=== PATIENT | female | born 1950 | race Caucasian/White ===

== ENCOUNTER 2016-11-27 11:01 | Observation (INO) | payer BC, OTHER ==
[~2016-11-27] VITALS: Ht 165.1 cm; Wt 53.4 kg
[~2016-11-27 11:01] MED LIST: CLTP PO; DIPH25CA5 PO; MAGN400T6 PO; OMEG10007 PO; VITA400C3 PO
--- NOTE | 2016-11-27 11:36 | EMERGENCY ROOM VISIT NOTE ---
History Report prepared by Christiano: Chon Smith Under the Supervision of: Dr. Bry Paez D.O. First contact with patient: 11:12 Chief Complaint: DIZZY Stated Complaint: SHAKING, NAUSEA, CHEST PAIN History of Present Illness The patient is a 66 year old female who presents to the Emergency Room with complaints of persistent dizziness that occurred prior to arrival this morning. She goes to a audiology director for low heart function and is a post-breast cancer patient with a history of chemotherapy. The patient says that she has been experiencing a bit of chest pain for the past week. However, this morning, she took a shower, and as she was drying her hair, she started feeling very dizzy and nauseous. She felt like vomiting but she did not because she hadn't eaten breakfast yet. The patient's legs also started to tremble. The patient thought she should eat something, so she started making her cereal, but then she started to tremble and shake more and felt more chest tightness. She could not swallow, and she felt like she was going to pass out. The patient also noted heavy breathing. She says that she still has these symptoms. The patient's blood pressure at home was 140/90-something. She took 1 regular Aspirin over an hour ago. She denies a cough or fevers. She has no history of heart attacks, or clots in the lungs or legs. She drinks occasional alcohol and does not use tobacco products. Source of History: patient Onset: Prior to arrival this morning Position: other (global - dizziness) Timing: other (persistent) Associated Symptoms: + chest pain, + nausea, No cough, No fevers, No vomiting Note: Associated symptoms: Could not swallow. Persistent trembling/shaking. Heavy breathing. Review of Systems See HPI for pertinent positives & negatives. A total of 10 systems reviewed and were otherwise negative. Past Medical & Surgical Medical Problems: (1) Breast cancer (2) Breast cancer (3) Non-ischemic cardiomyopathy (4) PVC (premature ventricular contraction) Surgical Problems: (1) H/O rotator cuff surgery (2) H/O sinus surgery (3) History of hysterectomy (4) History of hysterectomy (5) History of lumpectomy of right breast Family History Cancer Diabetes mellitus FH: kidney disease Heart disease Hypertension Social History Smoking Status: Never Smoker Smokeless Tobacco Use: No Alcohol Use: occasionally Marital Status: Housing Status: lives with family Occupation Status: employed Current/Historical Medications Scheduled Calcium/Vitamin D (Os-Javier 500 Plus D), 1 TAB PO DAILY Cyanocobalamin (Vitamin B-12), 500 MCG PO DAILY Magnesium Oxide (Magnesium Oxide), 1 CAP PO DAILY Multivitamin (Multivitamin), 1 TAB PO DAILY Allergies Coded Allergies: Codeine (Verified Adverse Reaction, Unknown, DIZZINESS, NAUSEA, 09/24/09) Meperidine (Verified Adverse Reaction, Unknown, LOW BP, IRREGULAR HEARTBEATS, 09/24/09) No Known Allergies (Verified , 05/14/08) Physical Exam Vital Signs Date Time Temp Pulse Resp B/P Pulse Ox O2 Delivery O2 Flow Rate FiO2 11/27/16 17:06 100 16 137/80 98 Room Air 11/27/16 16:18 Room Air 11/27/16 14:38 101 18 147/75 11/27/16 13:33 92 11/27/16 12:55 95 18 158/82 11/27/16 12:01 100 Room Air 11/27/16 12:01 100 Room Air 11/27/16 11:21 106 11/27/16 11:04 36.4 107 20 158/87 99 Room Air Physical Exam GENERAL: Patient is awake, alert, mildly anxious appearing but overall comfortable. EYES: The conjunctivae are clear. The pupils are round and reactive. EARS, NOSE, MOUTH AND THROAT: The nose is without any evidence of any deformity. Mucous membranes are moist tongue is midline NECK: The neck is nontender and supple. RESPIRATORY: Normal respiratory effort is noted there is no evidence of wheezing rhonchi or rales CARDIOVASCULAR: Regular rate and rhythm noted there no murmurs rubs or gallops normal S1 normal S2 GASTROINTESTINAL: The abdomen is soft. Bowel sounds are present in all quadrants. Abdomen is nontender MUSCULOSKELETAL/EXTREMITIES: There is no evidence of gross deformity full range of motion is noted in the hips and shoulders SKIN: There is no obvious evidence of any rash. There are no petechiae, pallor or cyanosis noted. NEUROLOGIC: Patient is awake alert and oriented x3 strength is symmetric patellar reflexes are 2+ bilaterally Medical Decision & Procedures ER Provider Diagnostic Interpretation: X-ray results as stated below per interpretation by me and the radiologist. SINGLE VIEW CHEST CLINICAL HISTORY: Dyspnea. FINDINGS: An AP, portable, upright chest radiograph is compared to study dated 11/30/2008. Correlation is made with PET/CT dated 06/03/2008. The examination is degraded by portable technique and patient rotation. The cardiomediastinal silhouette is unremarkable. There is atherosclerotic calcification of the thoracic aorta. Emphysema is suspected. There is chronic interstitial thickening. No airspace consolidation or pleural effusion is identified. Biapical scarring is noted. No pneumothorax is seen. The skeletal structures are osteopenic. The bony thorax is grossly intact. IMPRESSION: 1. There is no acute cardiopulmonary abnormality. 2. Suspect emphysema. Electronically signed by: Michael Murray M.D. 11/27/2016 12:00 PM Dictated Date/Time: 11/27/2016 11:59 AM Laboratory Results 11/27/16 11:35 Red Blood Count 3.62, Mean Corpuscular Volume 97.8, Mean Corpuscular Hemoglobin 33.4, Mean Corpuscular Hemoglobin Concent 34.2, Mean Platelet Volume 9.0, Neutrophils (%) (Auto) 76.5, Lymphocytes (%) (Auto) 16.3, Monocytes (%) (Auto) 5.2, Eosinophils (%) (Auto) 1.3, Basophils (%) (Auto) 0.4, Neutrophils # (Auto) 5.94, Lymphocytes # (Auto) 1.26, Monocytes # (Auto) 0.40, Eosinophils # (Auto) 0.10, Basophils # (Auto) 0.03 11/27/16 11:35 Test 11/27/16 11:35 11/27/16 11:41 11/27/16 13:50 White Blood Count 7.75 K/uL (4.8-10.8) Red Blood Count 3.62 M/uL (4.2-5.4) Hemoglobin 12.1 g/dL (12.0-16.0) Hematocrit 35.4 % (37-47) Mean Corpuscular Volume 97.8 fL (80-100) Mean Corpuscular Hemoglobin 33.4 pg (25-34) Mean Corpuscular Hemoglobin Concent 34.2 g/dl (32-36) Platelet Count 224 K/uL (130-400) Mean Platelet Volume 9.0 fL (7.4-10.4) Neutrophils (%) (Auto) 76.5 % Lymphocytes (%) (Auto) 16.3 % Monocytes (%) (Auto) 5.2 % Eosinophils (%) (Auto) 1.3 % Basophils (%) (Auto) 0.4 % Neutrophils # (Auto) 5.94 K/uL (1.4-6.5) Lymphocytes # (Auto) 1.26 K/uL (1.2-3.4) Monocytes # (Auto) 0.40 K/uL (0.11-0.59) Eosinophils # (Auto) 0.10 K/uL (0-0.5) Basophils # (Auto) 0.03 K/uL (0-0.2) RDW Standard Deviation 47.4 fL (36.4-46.3) RDW Coefficient of Variation 13.2 % (11.5-14.5) Immature Granulocyte % (Auto) 0.3 % Immature Granulocyte # (Auto) 0.02 K/uL (0.00-0.02) Prothrombin Time 10.6 SECONDS (9.0-12.0) Prothromb Time International Ratio 1.0 (0.9-1.1) Activated Partial Thromboplast Time 24.5 SECONDS (21.0-31.0) Partial Thromboplastin Ratio 0.9 Anion Gap 7.0 mmol/L (3-11) Est Creatinine Clear Calc Drug Dose 90.8 ml/min Estimated GFR () 114.8 Estimated GFR (Non- 99.0 BUN/Creatinine Ratio 25.0 (10-20) Calcium Level 9.0 mg/dl (8.5-10.1) Total Bilirubin 0.4 mg/dl (0.2-1) Aspartate Amino Transf (AST/SGOT) 19 U/L (15-37) Alanine Aminotransferase (ALT/SGPT) 20 U/L (12-78) Alkaline Phosphatase 62 U/L (45-117) Total Creatine Kinase 52 U/L (26-192) Creatine Kinase MB 0.9 ng/ml (0.5-3.6) Creatine Kinase MB Ratio 1.7 (0-3.0) Total Protein 7.5 gm/dl (6.4-8.2) Albumin 4.0 gm/dl (3.4-5.0) Globulin 3.5 gm/dl (2.5-4.0) Albumin/Globulin Ratio 1.1 (0.9-2) Thyroid Stimulating Hormone (TSH) 2.300 uIu/ml (0.300-4.500) Free Thyroxine 0.77 ng/dl (0.80-1.60) Bedside D-Dimer 115 ng/mlFEU (0-450) Troponin I < 0.015 ng/ml (0-0.045) Laboratory results per my review. ECG Indication: other (dizzy) Rate (beats per minute): 101 Rhythm: sinus tachycardia Findings: no ectopy, other (LVH noted by voltage criteria) Change: no significant change (from December 14 2016) ED Course 1112: The patient was evaluated in room B3B. A complete history and physical examination were performed. 1435: Upon reevaluation, the patient is resting comfortably. I discussed results and treatment plan with her. She verbalizes agreement and understanding. The patient will be evaluated for further management and care. 1444: I discussed the patient with Brianna Boyd. She will evaluate the patient for further treatment. Medical Decision Prior records/ancillary studies reviewed. Triage Nursing notes reviewed. Differential diagnosis: Etiologies such as cardiac ischemia, aortic dissection, pulmonary embolism, pneumonia, pneumothorax, musculoskeletal, infections, pericarditis, myocarditis , esophageal rupture, gastrointestinal, as well as others were entertained. The patient is a 66-year-old female who presented to the emergency department for an evaluation of multiple complaints. The patient started noticing chest discomfort and heaviness but also had shakiness. She describes episodes where she could not stand because she was so weak in the lower extremities and felt as though she was having palpitations and near-syncope. I'm very concerned about the patient's overall symptoms that she describes. It is possible he could be cardiac although I feel that she is low risk at this time because of serial negative troponins and EKG that does not show any acute change from previous. I discussed the patient's laboratory and radiographic studies with her. I also discussed the limitations of the emergency department workup for chest pain with her. Because she was very concerned about the symptoms I also discussed her case with the on-call [facility] hospitalist group. They've agreed to evaluate the patient in the emergency department for further management and disposition. Consults Time Called: 1442 Consulting Physician: Brianna Boyd Returned Call: [phone] I discussed the patient with Brianna Boyd. She will evaluate the patient for further treatment. Impression Primary Impression: Chest pain Additional Impressions: Palpitations Weakness Scribe Attestation The scribe's documentation has been prepared under my direction and personally reviewed by me in its entirety. I confirm that the note above accurately reflects all work, treatment, procedures, and medical decision making performed by me. Departure Information Dispostion Being Evaluated By Hospitalist Referrals Beni Keene M.D.(HU[facility]) (PCP) Patient Instructions My [facility] Problem Qualifiers Primary Impression: Chest pain Chest pain type: unspecified Qualified Codes: R07.9 - Chest pain, unspecified
[2016-11-27 11:57] LABS: BASO % 0.4 %; BASO ABS # 0.03 K/uL (0-0.2); COMPLETE YES; EOS % 1.3 %; HEMATOCRIT 35.4 % (37-47); IG% 0.3 %; LYMPH % 16.3 %; LYMPH ABS # 1.26 K/uL (1.2-3.4); MEAN CELL VOLUME 97.8 fL (80-100); MEAN CORPUSCULAR HEMOGLOBIN 33.4 pg (25-34); MEAN CORPUSCULAR HGB CONC 34.2 g/dl (32-36); MONO % 5.2 %; NEUT % 76.5 %; PLATELET COUNT 224 K/uL (130-400); RED BLOOD COUNT 3.62 M/uL (4.2-5.4); WHITE BLOOD COUNT 7.75 K/uL (4.8-10.8)
--- NOTE | 2016-11-27 12:02 | DIAGNOSTIC IMAGING REPORT ---
SINGLE VIEW CHEST CLINICAL HISTORY: Dyspnea. FINDINGS: An AP, portable, upright chest radiograph is compared to study dated 11/30/2008. Correlation is made with PET/CT dated 06/03/2008. The examination is degraded by portable technique and patient rotation. The cardiomediastinal silhouette is unremarkable. There is atherosclerotic calcification of the thoracic aorta. Emphysema is suspected. There is chronic interstitial thickening. No airspace consolidation or pleural effusion is identified. Biapical scarring is noted. No pneumothorax is seen. The skeletal structures are osteopenic. The bony thorax is grossly intact. IMPRESSION: 1. There is no acute cardiopulmonary abnormality. 2. Suspect emphysema. Electronically signed by: Michael Murray M.D. 11/27/2016 12:00 PM Dictated Date/Time: 11/27/2016 11:59 AM
[2016-11-27 12:05] LABS: PARTIAL THROMBOPLASTIN RATIO 0.9; PROTHROMBIN TIME (PATIENT) 10.6 SECONDS (9.0-12.0)
[2016-11-27 12:15] LABS: ALT/SGPT 20 U/L (12-78); BLOOD UREA NITROGEN 14 mg/dl (7-18); CARBON DIOXIDE 28 mmol/L (21-32); CHLORIDE 101 mmol/L (98-107); CREATININE 0.54 mg/dl (0.60-1.20); GLUCOSE 154 mg/dl (70-99); POTASSIUM 4.1 mmol/L (3.5-5.1); SODIUM 136 mmol/L (136-145)
[2016-11-27 12:25] LABS: ALB/GLOB RATIO 1.1 (0.9-2); ALKALINE PHOSPHATASE 62 U/L (45-117); AST/SGOT 19 U/L (15-37); CKMB/CK RATIO 1.7 (0-3.0)
[2016-11-27] MEDS ORDERED: MULT-506 PO (15:29)
[2016-11-27] MEDS ORDERED: CYAN500T PO (15:29)
[2016-11-27] MEDS ORDERED: CALC500C70 PO (15:29)
[2016-11-27] MEDS ORDERED: MAGN400C2 PO (15:29)
[2016-11-27] MEDS ORDERED: NITROGLYCERIN 0.4 MG SL PER TAB CHARGE SL PRN (15:30)
[2016-11-27] MEDS ORDERED: ACETAMINOPHEN 325 MG TAB PO PRN (15:30)
[2016-11-27] MEDS ORDERED: ONDANSETRON INJ 2 MG/ML 2 ML VIAL IV PRN (15:30)
--- NOTE | 2016-11-27 15:57 | History and Physical ---
History & Physical Date & Time of Service: Nov 27, 2016 at 15:34 Chief Complaint: Chest Pain, Lightheadedness, Shaking Primary Care Physician: Beni Keene M.D.(MICHAEL) History of Present Illness 66 year old female who presents to the ER with reports of shaking, chest pain, and lightheadedness. Patient reports she woke up this morning feeling in her usual state of health. She reports she showered and got ready for the day. She then went to have breakfast and reports that after having two bites of cereal, she had some difficulty swallowing and then started shaking all over. She thought that maybe her blood sugar was low so she went to the refrigerator and poured herself a glass of orange juice which she drank. She then reports she felt very lightheaded and dizzy. She was able to make it back to the chair. Also during this time she reports palpitations and chest pressure in the middle of her chest pain. She denies any radiation of the pain into her neck, jaw, or arm. She reports associated nausea. No shortness of breath or diaphoresis. Patient reports she has been feeling well recently. She walks 1 mile almost everyday which she tolerates without any problem or episodes of chest pain. Yesterday she was cleaning her grill and feels like she may have inhaled some of the glass cleaner she was using. She denies abdominal pain, vomiting, or diarrhea. No fever or chills. She denies urinary symptoms. Patient reports her symptoms have resolved since coming to the ER. In the ER, patient's initial troponin is negative and EKG does not show any acute ST changes. Labs are unremarkable. Past Medical/Surgical History Medical Problems: (1) Breast cancer Status: Resolved (2) Breast cancer Permanent Comment: s/p chemo, radiation, and lumpectomy Status: Chronic (3) Non-ischemic cardiomyopathy Permanent Comment: chemo induced echo 08/2016 - EF 40-44%, grade I diastolic dysfunction Status: Chronic (4) PVC (premature ventricular contraction) Status: Chronic Surgical Problems: (1) H/O rotator cuff surgery Status: Chronic (2) H/O sinus surgery Status: Chronic (3) History of hysterectomy Status: Resolved (4) History of hysterectomy Status: Chronic (5) History of lumpectomy of right breast Status: Chronic Family History Diabetes mellitus MOTHER FH: brain aneurysm SISTER FH: kidney disease MOTHER Heart disease FATHER ( from [place] at age 69) Hypertension MOTHER Social History Smoking Status: Never Smoker Alcohol Use: 1 beer/day Marital Status: Immunizations History of Influenza Vaccine: Yes Influenza Vaccine Date: Jun 14, 2016 History of Tetanus Vaccine?: Yes Tetanus Immunization Date: May 23, 2010 Multi-Drug Resistant Organisms History of MDRO: No Allergies Coded Allergies: Codeine (Verified Adverse Reaction, Unknown, DIZZINESS, NAUSEA, 09/24/09) Meperidine (Verified Adverse Reaction, Unknown, LOW BP, IRREGULAR HEARTBEATS, 09/24/09) No Known Allergies (Verified , 05/14/08) Home Medications Scheduled Calcium/Vitamin D (Os-Javier 500 Plus D), 1 TAB PO DAILY Cyanocobalamin (Vitamin B-12), 500 MCG PO DAILY Magnesium Oxide (Magnesium Oxide), 1 CAP PO DAILY Multivitamin (Multivitamin), 1 TAB PO DAILY Review of Systems 10 point review of systems was completed with the pertinent positives and negatives noted per the HPI Physical Exam Vital Signs Date Time Temp Pulse Resp B/P Pulse Ox O2 Delivery O2 Flow Rate FiO2 11/27/16 14:38 101 18 147/75 11/27/16 13:33 92 11/27/16 12:55 95 18 158/82 11/27/16 12:01 100 Room Air 11/27/16 12:01 100 Room Air 11/27/16 11:21 106 11/27/16 11:04 36.4 107 20 158/87 99 Room Air General Appearance: no apparent distress Head: normocephalic Eyes: normal inspection ENT: hearing grossly normal Neck: supple, no JVD Respiratory/Chest: lungs clear, normal breath sounds, no respiratory distress Cardiovascular: no edema, + tachycardia (HR in the 90s, rhythm regular) Abdomen/GI: normal bowel sounds, non tender, soft Extremities/Musculoskelatal: normal inspection, no calf tenderness Neurologic/Psych: no motor/sensory deficits, alert, normal mood/affect, oriented x 3 Skin: normal color, warm/dry Diagnostics Laboratory Results Results Past 24 Hours Test 11/27/16 11:35 11/27/16 11:41 11/27/16 13:50 Range/Units White Blood Count 7.75 4.8-10.8 K/uL Red Blood Count 3.62 4.2-5.4 M/uL Hemoglobin 12.1 12.0-16.0 g/dL Hematocrit 35.4 37-47 % Mean Corpuscular Volume 97.8 80-100 fL Mean Corpuscular Hemoglobin 33.4 25-34 pg Mean Corpuscular Hemoglobin Concent 34.2 32-36 g/dl Platelet Count 224 130-400 K/uL Mean Platelet Volume 9.0 7.4-10.4 fL Neutrophils (%) (Auto) 76.5 % Lymphocytes (%) (Auto) 16.3 % Monocytes (%) (Auto) 5.2 % Eosinophils (%) (Auto) 1.3 % Basophils (%) (Auto) 0.4 % Neutrophils # (Auto) 5.94 1.4-6.5 K/uL Lymphocytes # (Auto) 1.26 1.2-3.4 K/uL Monocytes # (Auto) 0.40 0.11-0.59 K/uL Eosinophils # (Auto) 0.10 0-0.5 K/uL Basophils # (Auto) 0.03 0-0.2 K/uL RDW Standard Deviation 47.4 36.4-46.3 fL RDW Coefficient of Variation 13.2 11.5-14.5 % Immature Granulocyte % (Auto) 0.3 % Immature Granulocyte # (Auto) 0.02 0.00-0.02 K/uL Prothrombin Time 10.6 9.0-12.0 SECONDS Prothromb Time International Ratio 1.0 0.9-1.1 Activated Partial Thromboplast Time 24.5 21.0-31.0 SECONDS Partial Thromboplastin Ratio 0.9 Sodium Level 136 136-145 mmol/L Potassium Level 4.1 3.5-5.1 mmol/L Chloride Level 101 98-107 mmol/L Carbon Dioxide Level 28 21-32 mmol/L Anion Gap 7.0 3-11 mmol/L Blood Urea Nitrogen 14 7-18 mg/dl Creatinine 0.54 0.60-1.20 mg/dl Est Creatinine Clear Calc Drug Dose 90.8 ml/min Estimated GFR () 114.8 Estimated GFR (Non- 99.0 BUN/Creatinine Ratio 25.0 10-20 Random Glucose 154 70-99 mg/dl Calcium Level 9.0 8.5-10.1 mg/dl Total Bilirubin 0.4 0.2-1 mg/dl Aspartate Amino Transf (AST/SGOT) 19 15-37 U/L Alanine Aminotransferase (ALT/SGPT) 20 12-78 U/L Alkaline Phosphatase 62 45-117 U/L Total Creatine Kinase 52 26-192 U/L Creatine Kinase MB 0.9 0.5-3.6 ng/ml Creatine Kinase MB Ratio 1.7 0-3.0 Troponin I < 0.015 < 0.015 0-0.045 ng/ml Total Protein 7.5 6.4-8.2 gm/dl Albumin 4.0 3.4-5.0 gm/dl Globulin 3.5 2.5-4.0 gm/dl Albumin/Globulin Ratio 1.1 0.9-2 Thyroid Stimulating Hormone (TSH) 2.300 0.300-4.500 uIu/ml Free Thyroxine 0.77 0.80-1.60 ng/dl Bedside D-Dimer 115 0-450 ng/mlFEU Diagnostic Radiology CXR IMPRESSION: 1. There is no acute cardiopulmonary abnormality. 2. Suspect emphysema. Impression Assessment and Plan CHEST PAIN, NEAR SYNCOPE - admit to tele - patient presenting with sudden onset of chest pressure and palpitations, lightheadedness, and generalized tremors - symptoms lasted for about 2 hours and have resolved on their own - initial troponin negative, EKG without acute ST changes - patient took ASA at home, will continue with daily dose and add on empiric atorvastatin 80mg until ACS ruled out - ACS risk factors - + family history - check lipids in AM - has history of PVCs - not on treatment - Holter 07/2016 showed rare asymptomatic PVCs - electrolytes and TSH WNL - monitor in tele for arrhythmias - check orthostatic BPs - D. Dimer negative - continue to cycle cardiac enzymes, if negative, will proceed with stress test in AM - ? if symptoms were due to anxiety / panic attack CHEMO INDUCED CARDIOMYOPATHY - echo 08/2016 - EF 40-44%, grade II diastolic dysfunction - not on diuretics, appears euvolemic DVT PROPHYLAXIS -Lovenox DISPO - The patient will be placed as observation status for now until further work up is complete. I have seen and examined the patient and agree with the assessment and plan as stated above. Mrs. Adair experienced what she describes as a "disorganized " rhythm in her chest for approximately 2 hours that was associated with lightheadedness and nausea and was made worse with lying flat. She took the ASA 325mg at home and came in, feeling better after receiving a warm blanket from the ER nurse 30 minutes after her arrival. EKG reveals sinus tachycardia with LVH and left atrial enlargement. An arrythmia is possible and ACS is intermediate probability. Observe on telemetry overnight and treat symptoms if they occur. Consider stress test in am or as an outpatient. Of note patient has a h/o palpitations and recent Holter monitor results from 07/2016 are above. She is monitored in [facility] annually. Mild tachycardia in high 90s /low 100s otherwise stable and afebrile with unremarkable physical exam. Katty Roman, DO Level of Care Telemetry Resuscitation Status FULL RESUSCITATION VTE Prophylaxis VTE Risk Assessment Done? Y/N: Yes Risk Level: Moderate Given or contraindicated: Enoxaparin (Lovenox)SQ Social Service Consult None Apply
[2016-11-27 16:18] VITALS: Ht 165.1 cm; Wt 53.4 kg
[2016-11-27] MEDS ORDERED: IV FLUIDS COMPLETED PRN ×2 (16:30)
[2016-11-27] MEDS ORDERED: ATORVASTATIN 40 MG TAB PO ONE (16:30)
[2016-11-27 17:45] VITALS: BP 119/70; PULSE 104; TEMP 36.8; O2SAT 97
[2016-11-27 23:59] VITALS: BP 124/71; PULSE 89; TEMP 36.9; O2SAT 94
[2016-11-28] VITALS (7 sets, daily range): BP systolic 114–149; BP diastolic 72–101; PULSE 83–111; TEMP 36.4–37.1; O2SAT 95–98
[2016-11-28 06:06] LABS: HEMATOCRIT 36.2 % (37-47); MEAN CELL VOLUME 95.5 fL (80-100); MEAN CORPUSCULAR HEMOGLOBIN 32.7 pg (25-34); MEAN CORPUSCULAR HGB CONC 34.3 g/dl (32-36); MEAN PLATELET VOLUME 9.1 fL (7.4-10.4); PLATELET COUNT 229 K/uL (130-400); RED BLOOD COUNT 3.79 M/uL (4.2-5.4); WHITE BLOOD COUNT 6.37 K/uL (4.8-10.8)
[2016-11-28 06:44] LABS: MANUAL MICROSCOPIC REQUIRED? NO; REVIEW REQ? YES; URINE APPEARANCE CLEAR (CLEAR); URINE BILIRUBIN NEG (NEG); URINE COLOR YELLOW; URINE NITRITE NEG (NEG); URINE PH 5.5 (4.5-7.5); URINE SPECIFIC GRAVITY 1.021 (1.000-1.030); UROBILINOGEN NEG (NEG)
[2016-11-28 06:45] LABS: BUN/CREATININE RATIO 24.1 (10-20); CALCIUM 9.3 mg/dl (8.5-10.1); CREATININE 0.49 mg/dl (0.60-1.20); POTASSIUM 3.8 mmol/L (3.5-5.1)
[2016-11-28 06:49] LABS: ESTIMATED AVERAGE GLUCOSE 94 mg/dl; HA1C FLAG Normal (Normal)
[2016-11-28 06:49] LABS: CHOLESTEROL/HDL RATIO 1.9
[2016-11-28] MEDS ORDERED: MULTIVITAMIN TAB PO SCH (09:00)
[2016-11-28] MEDS ORDERED: CYANOCOBALAMIN 500 MCG TAB (VIT B-12) PO SCH (09:00)
[2016-11-28] MEDS ORDERED: ASPIRIN 81 MG ECTAB PO SCH (09:00)
[2016-11-28] MEDS ORDERED: CALCIUM 600MG + VIT D 400 IU TAB PO SCH (09:00)
[2016-11-28] MEDS ORDERED: ENOXAPARIN 40 MG/0.4 ML SYR SQ SCH (09:00)
[2016-11-28] MEDS ORDERED: MAGNESIUM OXIDE 400 MG TAB PO SCH (09:00)
--- NOTE | 2016-11-28 16:21 | Progress Note ---
Internal Med Progress Note Date of Service: Nov 28, 2016. Provider Documentation: SUBJECTIVE: Patient is seen and examined at bedside. States feeling well. Denies any chest pain, palpitations, dizziness currently. Refused stress test and only got ECHO. Eager to get discharged. OBJECTIVE: Vital Signs-as noted below Physical Exam: General Appearance:Moderately built and nourished, no apparent distress Head: normocephalic, Atraumatic Eyes: normal inspection, EOMI, PERRLA Neck: supple, JVD, Trachea midline Respiratory/Chest: Normal breath sounds, CTA Cardiovascular: S1, S2, NSR, +Tachycardia, No murmur Abdomen/GI:Soft, Non tender, Bowel sounds present Extremities/Musculoskelatal:normal inspection, no edema Neurologic/Psych:AAOX3, grossly no focal neurological deficits Skin: normal color, warm Lab data as noted below. ASSESSMENT & PLAN: CHEST PAIN, NEAR SYNCOPE H/O PVCs - not on treatment - Holter 07/2016 showed rare asymptomatic PVCs Patient presented with sudden onset of chest pressure and palpitations, lightheadedness, and generalized tremors Symptoms lasted for about 2 hours and have resolved on their own Troponin X3 : Negative EKG without acute ST changes Electrolytes and TSH WNL Monitor did not show any arrhythmias D. Dimer negative Patient refused stress test and wanted further evaluation done as outpatient Wants to follow up with cardiology as outpatient Believes symptoms are likely secondary to anxiety / panic attack ECHO: Normal LV wall motion CHEMO INDUCED CARDIOMYOPATHY Last Echo 08/2016 - EF 40-44%, grade II diastolic dysfunction Not on diuretics, appears euvolemic Repeat ECHO: improved EF H/O Breast cancer S/P Lumpectomy, chemo and radiation Follows with DVT PX Lovenox DISPO Plan to discharge home today Follow up with on December 05 at 12:50 Pm Follow up with cardiology on December 01 at 7:45 Am PROCEDURES: ECHO: * The left ventricle is normal in size. * There is normal left ventricular wall thickness. * The left ventricular wall motion is normal. * Left ventricular systolic function is normal. * Ejection Fraction = 55-60%. * There is no signifcant valvular heart disease * There is no pericardial effusion. Vital Signs: Date Time Temp Pulse Resp B/P Pulse Ox O2 Delivery O2 Flow Rate FiO2 11/28/16 15:20 36.5 109 20 149/83 95 Room Air 103 148/91 111 133/101 11/28/16 12:00 98 Room Air 11/28/16 11:41 36.4 90 18 114/72 98 11/28/16 08:17 37.1 87 16 120/77 98 11/28/16 08:00 98 Room Air 11/28/16 04:00 Room Air 11/28/16 00:02 36.4 83 16 149/77 98 Room Air 148/83 146/96 11/28/16 00:00 Room Air 11/27/16 20:00 Room Air 11/27/16 17:45 36.8 104 20 119/70 97 Room Air 11/27/16 17:06 100 16 137/80 98 Room Air Lab Results: Results Past 24 Hours Test 11/27/16 19:00 11/28/16 00:30 11/28/16 05:30 11/28/16 05:46 Range/Units Creatine Kinase MB 0.8 0.7 0.5-3.6 ng/ml Creatine Kinase MB Ratio 0-3.0 Troponin I < 0.015 < 0.015 0-0.045 ng/ml Urine Color YELLOW Urine Appearance CLEAR CLEAR Urine pH 5.5 4.5-7.5 Urine Specific [place] 1.021 1.000-1.030 Urine Protein NEG NEG Urine Glucose (UA) NEG NEG Urine Ketones NEG NEG Urine Occult Blood 1+ NEG Urine Nitrite NEG NEG Urine Bilirubin NEG NEG Urine Urobilinogen NEG NEG Urine Leukocyte Esterase MODERATE NEG Urine WBC (Auto) 10-30 0-5 /hpf Urine RBC (Auto) 0-4 0-4 /hpf Urine Hyaline Casts (Auto) 1-5 0-5 /lpf Urine Epithelial Cells (Auto) 10-20 0-5 /lpf Urine Bacteria (Auto) NEG NEG White Blood Count 6.37 4.8-10.8 K/uL Red Blood Count 3.79 4.2-5.4 M/uL Hemoglobin 12.4 12.0-16.0 g/dL Hematocrit 36.2 37-47 % Mean Corpuscular Volume 95.5 80-100 fL Mean Corpuscular Hemoglobin 32.7 25-34 pg Mean Corpuscular Hemoglobin Concent 34.3 32-36 g/dl RDW Standard Deviation 45.9 36.4-46.3 fL RDW Coefficient of Variation 13.1 11.5-14.5 % Platelet Count 229 130-400 K/uL Mean Platelet Volume 9.1 7.4-10.4 fL Sodium Level 140 136-145 mmol/L Potassium Level 3.8 3.5-5.1 mmol/L Chloride Level 105 98-107 mmol/L Carbon Dioxide Level 30 21-32 mmol/L Anion Gap 5.0 3-11 mmol/L Blood Urea Nitrogen 12 7-18 mg/dl Creatinine 0.49 0.60-1.20 mg/dl Est Creatinine Clear Calc Drug Dose 96.5 ml/min Estimated GFR () 118.5 Estimated GFR (Non- 102.2 BUN/Creatinine Ratio 24.1 10-20 Random Glucose 87 70-99 mg/dl Calcium Level 9.3 8.5-10.1 mg/dl Triglycerides Level 51 0-150 mg/dl Cholesterol Level 224 0-200 mg/dl HDL Cholesterol 120 mg/dl LDL Cholesterol, Calculated 94 mg/dl VLDL Cholesterol, Calculated 10 mg/dl Cholesterol/HDL Ratio 1.9
--- NOTE | 2016-11-28 16:27 | ECHOCARDIOGRAM REPORT ---
*NOTICE TO RECEIVING [employer]Y This information is strictly Confidential and protected under [place] law. [place] law prohibits you from making any further disclosure of this information unless further disclosure is expressly permitted by the written consent of the person to whom it pertains or is authorized by law. A general authorization for the release of medical or other information is not sufficient for this purpose. Hospital accepts no responsibility if the information is made available to any other person, INCLUDING THE PATIENT. Interpretation Summary * Name: CJ OROZCO Study Date: 11/28/2016 02:35 PM BP: 133/101 mmHg * Patient Location: [facility] HR: 111 * : 1950 (M/d/yyyy) Gender: Female Height: 65 in * Age: 66 yrs Ethnicity: CA Weight: 122 lb * Ordering Physician: Brianna Jean * Performed By: Denise Lowe RDCS * * Reason For Study: Chest pain * BSA: 1.6 m2 * -- Conclusions -- * The left ventricle is normal in size. * There is normal left ventricular wall thickness. * The left ventricular wall motion is normal. * Left ventricular systolic function is normal. * Ejection Fraction = 55-60%. * There is no signifcant valvular heart disease * There is no pericardial effusion. Procedure Details * A complete two-dimensional transthoracic echocardiogram was performed (2D, M-mode, Doppler and color flow Doppler). Left Ventricle * The left ventricle is normal in size. * There is normal left ventricular wall thickness. * Ejection Fraction = 55-60%. * Left ventricular systolic function is normal. * The left ventricular wall motion is normal. Right Ventricle * The right ventricle is normal in size and function. Atria * The left atrial size is normal. * Right atrial size is normal. * No ASD detected; PFO is not assessed. Mitral Valve * The mitral valve anatomy is normal. * There is no mitral valve stenosis. * There is trace mitral regurgitation. Tricuspid Valve * The tricuspid valve anatomy is normal. * There is no tricuspid stenosis. * There is trace tricuspid regurgitation. * Doppler findings do not suggest pulmonary hypertension. Aortic Valve * The aortic valve is trileaflet. * No hemodynamically significant valvular aortic stenosis. * No aortic regurgitation is present. Pulmonic Valve * The pulmonic valve is not well visualized. Great Vessels * The aortic root is normal size. Pericardium/Pleural * There is no pericardial effusion. Great Vessels * Normal inferior vena cava diameter and respiratory variation suggests normal central venous pressure. MMode 2D Measurements and Calculations IVSd 0.69 cm LVIDd 4.5 cm LVIDs 3.0 cm LVPWd 0.93 cm IVS/LVPW 0.74 FS 33.0 % EDV(Teich) 92.5 ml ESV(Teich) 35.5 ml EF(Teich) 61.6 % EDV(cubed) 91.2 ml ESV(cubed) 27.5 ml EF(cubed) 69.9 % LV mass(C)d 114.8 grams LV mass(C)dI 71.6 grams/m\S\2 CO(Teich) 5.2 l/min CI(Teich) 3.2 l/min/m\S\2 SV(Teich) 57.0 ml SI(Teich) 35.6 ml/m\S\2 CO(cubed) 5.8 l/min CI(cubed) 3.6 l/min/m\S\2 SV(cubed) 63.7 ml SI(cubed) 39.7 ml/m\S\2 Ao root diam 3.5 cm Ao root area 9.4 cm\S\2 ACS 1.8 cm LA dimension 2.7 cm LA/Ao 0.79 LVOT diam 2.0 cm LVOT area 3.2 cm\S\2 LVAd ap4 26.5 cm\S\2 LVLd ap4 8.6 cm EDV(MOD-sp4) 67.2 ml LVAs ap4 15.5 cm\S\2 LVLs ap4 7.9 cm ESV(MOD-sp4) 27.0 ml EF(MOD-sp4) 59.8 % LVAd ap2 28.2 cm\S\2 LVLd ap2 9.0 cm EDV(MOD-sp2) 74.4 ml LVAs ap2 14.9 cm\S\2 LVLs ap2 8.1 cm ESV(MOD-sp2) 23.2 ml EF(MOD-sp2) 68.8 % CO(MOD-sp4) 3.7 l/min CI(MOD-sp4) 2.3 l/min/m\S\2 SV(MOD-sp4) 40.2 ml SI(MOD-sp4) 25.1 ml/m\S\2 CO(MOD-sp2) 4.7 l/min CI(MOD-sp2) 2.9 l/min/m\S\2 SV(MOD-sp2) 51.2 ml SI(MOD-sp2) 31.9 ml/m\S\2 Doppler Measurements and Calculations MV E max franny 64.0 cm/sec MV A max franny 69.4 cm/sec MV E/A 0.92 MV dec time 0.25 sec Ao V2 max 112.5 cm/sec Ao max PG 5.1 mmHg Ao max PG (full) 2.8 mmHg ROHAN(V,A) 2.1 cm\S\2 ROHAN(V,D) 2.1 cm\S\2 LV V1 max PG 2.2 mmHg LV V1 max 74.9 cm/sec PA V2 max 103.2 cm/sec PA max PG 4.3 mmHg PA acc slope 862.1 cm/sec\S\2 PA acc time 0.11 sec TR max franny 185.4 cm/sec PA pr(Accel) 29.9 mmHg
--- NOTE | 2016-11-28 16:59 | Discharge Summary ---
Discharge Summary Date of Service Nov 28, 2016. Discharge Summary Admission Date: Nov 27, 2016 at 15:33 Discharge Date: Nov 28, 2016 Discharge Disposition: Home Principal Diagnosis: Chest pain, Near Syncope Procedures: ECHO: * The left ventricle is normal in size. * There is normal left ventricular wall thickness. * The left ventricular wall motion is normal. * Left ventricular systolic function is normal. * Ejection Fraction = 55-60%. * There is no signifcant valvular heart disease * There is no pericardial effusion. Pending Studies/Follow-Up: Follow up with on December 05 at 12:50 Pm Follow up with cardiology on December 01 at 7:45 Am Seek immediate medical attention if your symptoms reoccur or worsen Medication Reconciliation Continued Medications: Calcium/Vitamin D (Os-Javier 500 Plus D) Tab 1 TAB PO DAILY, TAB Cyanocobalamin (Vitamin B-12) 500 Mcg Tab 500 MCG PO DAILY, TAB Magnesium Oxide (Magnesium Oxide) 400 Mg Cap 1 CAP PO DAILY for 30 Days, #30 CAP 3 Refills Multivitamin (Multivitamin) Tab 1 TAB PO DAILY, TAB Admission Information HPI (per Admitting provider): 66 year old female who presents to the ER with reports of shaking, chest pain, and lightheadedness. Patient reports she woke up this morning feeling in her usual state of health. She reports she showered and got ready for the day. She then went to have breakfast and reports that after having two bites of cereal, she had some difficulty swallowing and then started shaking all over. She thought that maybe her blood sugar was low so she went to the refrigerator and poured herself a glass of orange juice which she drank. She then reports she felt very lightheaded and dizzy. She was able to make it back to the chair. Also during this time she reports palpitations and chest pressure in the middle of her chest pain. She denies any radiation of the pain into her neck, jaw, or arm. She reports associated nausea. No shortness of breath or diaphoresis. Patient reports she has been feeling well recently. She walks 1 mile almost everyday which she tolerates without any problem or episodes of chest pain. Yesterday she was cleaning her grill and feels like she may have inhaled some of the poultry cleaner she was using. She denies abdominal pain, vomiting, or diarrhea. No fever or chills. She denies urinary symptoms. Patient reports her symptoms have resolved since coming to the ER. In the ER, patient's initial troponin is negative and EKG does not show any acute ST changes. Labs are unremarkable. Physical Exam (per Admitting): General Appearance: no apparent distress Head: normocephalic Eyes: normal inspection ENT: hearing grossly normal Neck: supple, no JVD Respiratory/Chest: lungs clear, normal breath sounds, no respiratory distress Cardiovascular: no edema, + tachycardia (HR in the 90s, rhythm regular) Abdomen/GI: normal bowel sounds, non tender, soft Extremities/Musculoskelatal: normal inspection, no calf tenderness Neurologic/Psych: no motor/sensory deficits, alert, normal mood/affect, oriented x 3 Skin: normal color, warm/dry Hospital Course CHEST PAIN, NEAR SYNCOPE H/O PVCs - not on treatment - Holter 07/2016 showed rare asymptomatic PVCs Patient presented with sudden onset of chest pressure and palpitations, lightheadedness, and generalized tremors Symptoms lasted for about 2 hours and have resolved on their own Troponin X3 : Negative EKG without acute ST changes Electrolytes and TSH WNL Monitor did not show any arrhythmias D. Dimer negative Patient refused stress test and wanted further evaluation done as outpatient Wants to follow up with cardiology as outpatient Believes symptoms are likely secondary to anxiety / panic attack ECHO: Normal LV wall motion CHEMO INDUCED CARDIOMYOPATHY Last Echo 08/2016 - EF 40-44%, grade II diastolic dysfunction Not on diuretics, appears euvolemic Repeat ECHO: improved EF H/O Breast cancer S/P Lumpectomy, chemo and radiation Follows with Dr.Patel HARRELL [facility] DISPO Plan to discharge home today Follow up with on December 05 at 12:50 Pm Follow up with cardiology on December 01 at 7:45 Am PROCEDURES: ECHO: * The left ventricle is normal in size. * There is normal left ventricular wall thickness. * The left ventricular wall motion is normal. * Left ventricular systolic function is normal. * Ejection Fraction = 55-60%. * There is no signifcant valvular heart disease * There is no pericardial effusion. Total time spent on discharge = This includes examination of the patient, discharge planning, medication reconciliation, and communication with other providers. Discharge Instructions Discharge Instructions Date of Service Nov 28, 2016. Admission Reason for Admission: Chest Pain Discharge Discharge Diagnosis / Problem: Chest pain, Near Syncope Discharge Goals Goal(s): Decrease discomfort, Improve function Activity Recommendations Activity Limitations: resume your previous activity Exercise/Sports Limitations: as tolerated . Instructions / Follow-Up Instructions / Follow-Up Follow up with on December 05 at 12:50 Pm Follow up with cardiology on December 01 at 7:45 Am Seek immediate medical attention if your symptoms reoccur or worsen Current Hospital Diet Patient's current hospital diet: AHA Diet (Heart Healthy) Discharge Diet Recommended Diet: AHA Diet (Heart Healthy) Pending Studies Studies pending at discharge: no Laboratory Results Hemoglobin A1c Test 11/27/16 11:35 Range/Units Estimated Average Glucose 94 mg/dl Hemoglobin A1c 4.9 4.5-5.6 % Lipid Panel Test 11/28/16 05:46 Range/Units Triglycerides Level 51 0-150 mg/dl Cholesterol Level 224 H 0-200 mg/dl HDL Cholesterol 120 mg/dl Cholesterol/HDL Ratio 1.9 LDL Cholesterol, Calculated 94 mg/dl Medical Emergencies . Who to Call and When: Medical Emergencies: If at any time you feel your situation is an emergency, please call 911 immediately. . Non-Emergent Contact Non-Emergency issues call your: Primary Care Provider, [employer] Service Technician Call Non-Emergent contact if: you have a fever, your pain is not controlled, your pain is worsening, your pain is unusual for you, you have any medication questions . . "Provider Documentation" section prepared by Mynor Alfred. VTE Core Measure Inpt VTE Proph given/why not?: Enoxaparin (Lovenox)SQ
--- NOTE | 2016-12-04 08:07 | EDITING REQUIRED CODING QUERY ---
CQSUPPORTING DIAGNOSIS NEEDED A supporting diagnosis is required for the test/procedure performed on this patient in order for us to be reimbursed by the patient's insurance. Please provide a supporting diagnosis for the following test/procedure listed below next to the test name along with your signature. *If there is no additional diagnosis for this patient that would support the following test/procedure please document that below next to the test/procedure. Test(s)/Procedure(s) that require a supporting diagnosis: DOS 11/27/16 OBSERVATION BED GLYCATED HEMOGLOBINE TEST ORDERED BY ELIE MCKEON Dx: hyperglycemia Provider Signature: Date: Thank you Alejandra Platt Health Information Management Once completed, please kindly fax back to [phone] For questions please call [phone]
== END 2016-11-28 19:20 | disposition home or self-care (01) ==
LOC: ENRESERVDT → ENRESERVTM → C.EDB 11:09 → C.MED 15:33
PROVIDERS: ADMIT Hospitalist; ATTEND Internal Medicine
DX: R07.89 Other chest pain (principal); R55 Syncope and collapse; I42.7 Cardiomyopathy due to drug and external agent; T45.1X5A Adverse effect of antineoplastic and immunosuppressive drugs, initial encounter; Z85.3 Personal history of malignant neoplasm of breast; Z82.49 Family history of ischemic heart disease and other diseases of the circulatory system; R73.9 Hyperglycemia, unspecified